=== PATIENT | male | born 2000 | race African-American/Black ===

== ENCOUNTER 2019-02-05 09:34 | Emergency (ER) | payer SELFPAY ==
[~2019-02-05] VITALS: Ht 167.6 cm; Wt 64.4 kg
[~2019-02-05 09:34] MED LIST: ADVAIR 250-501 EACH INH; ALBUTEROL SULF8.5 GM INH; ALBUTEROL2.5 MG/3 M INH; AMOXICILLIN500 MG ORAL; PREDNISONE20 MG ORAL; SINGULAIR10 MG ORAL; [UNRECOGNIZED DRUG - SUPPLY]
[2019-02-05] MEDS ORDERED: ACETAMINOPHEN325 M1 ORAL (09:58)
--- NOTE | 2019-02-05 10:00 | NUR ---
ED Nurse Note: Patient walked into ED c/o lower back pain that is non radiating. patient reports he worked out recently prior to pain. patient is alert awake x 4 ambulatory steady gait. patient reports increased back pain with movement.
[2019-02-05] MEDS ORDERED: ROBAXIN-750750 MG PO (10:25)
--- NOTE | 2019-02-05 10:27 | Emergency Room Report ---
History of Present Illness General Chief Complaint: Lower Back Pain or Injury Source: Patient Present Illness HPI Disclaimer: Please note that this report is being documented using [employer] technology. This can lead to erroneous entry secondary to incorrect interpretation by the dictating instrument. HPI: 18-year-old male history of asthma and autism presents for evaluation of lumbosacral back pain. Symptoms have been present for approximately 3 days. He first noticed them after exercising as a gradual bilateral ache. There is no radiation of the pain down the legs and he denies lower extremity weakness, changes in sensation, saddle anesthesia, urinary retention or fecal incontinence. He is able to ambulate without difficulty. He denies any fevers , is not taking any injectable medications and does not use IV drugs. He took 400 mg of ibuprofen one time without significant improvement. There is no obvious trauma to the back. PMH: Autism, asthma PSH: None Allergies: None Social Hx: Denies alcohol, tobacco, drug use Allergies: Coded Allergies: No Known Allergies (Unverified , 02/18/14) Nursing Documentation-PMH Past Medical History: No History, Except For Hx Cardiac Problems: No Hx Asthma: Yes Hx Gastrointestinal Problems: No Hx Neurological Problems: No Review of Systems All Other Systems: negative except mentioned in HPI Physical Exam Vital Signs Date Time Temp Pulse Resp B/P (MAP) Pulse Ox O2 Delivery O2 Flow Rate FiO2 02/05/19 09:50 98.4 78 20 117/81 (93) 98 Room Air General: Awake and alert, no acute distress HEENT: NC/AT. EOMI. Cardiovascular: RRR. S1 and S2 normal. No murmur appreciated Resp: Normal work of breathing. No cough, wheezing or crackles appreciated Skin: Intact. No abrasions, laceration or rash over the exposed skin MSK: Normal tone and bulk. Moving all extremities. No obvious deformity. Ambulating safely without difficulty. Neuro: Awake and alert. Mentating appropriately. Sensation is intact over the dermatomes of the lower extremity. There is no saddle anesthesia. Back/Spine: No midline tenderness or deformity in the cervical, thoracic or lumbosacral spine. There is bilateral paraspinal tenderness and tenderness over the iliac crest, piriformis and superior portion of the gluteals bilaterally. There is no paraspinal tenderness in the cervical or thoracic spine. Medical Decision Making Diagnostic Impression: Primary Impression: Muscle spasm of back Additional Impression: back pain ER Course Is a 18-year-old male presenting for evaluation of lower back pain over the past several days. He has no red flag syndrome cauda equina syndrome or any significant history, physical exam finding that would suggest epidural abscess. Patient is likely experiencing pain secondary to a muscle spasm or lumbosacral strain after working out several days ago. He has not yet tried full dose NSAIDs and can be discharged home with Robaxin and ibuprofen. Follow- up with PMD as needed. His mother is been present with him during my history and physical exam and she understands and agrees with this treatment plan. We discussed reasons to return to the emergency department. They will be discharged home. Last Vital Signs Date Time Temp Pulse Resp B/P (MAP) Pulse Ox O2 Delivery O2 Flow Rate FiO2 02/05/19 09:50 98.4 78 20 117/81 (93) 98 Room Air Disposition: HOME, SELF-CARE Condition: Stable Scripts Methocarbamol* (ROBAXIN-750*) 750 Mg Tablet 750 MG PO TID, #21 TAB 0 Refills Prov: Armando Bradshaw MD 02/05/19 Patient Instructions: Low Back Sprain With Rehab-Sports[facility] Additional Instructions: You are evaluated in the emergency department today for back pain. Likely, this is a musculoskeletal strain and spasm from working out. Continue to use 650 mg of Tylenol every 4-6 hours but you can also add 600 mg of Motrin every 6 hours for control of pain and inflammation. He will also be started on a muscle relaxant to use as needed. I encourage you to stay mobile to prevent stiffness and perform back exercises and mobility exercises as able but without causing significant pain or further harm. You can use warm soaks in a bath to help loosen the muscles and heating/sports balsms if you feel they help. If you experiencing any weakness in the legs, are unable to walk, have difficulty passing urine, lose control of your bowels or notice any numbness or tingling in the legs please return to the emergency department for reevaluation. Follow-up with your primary doctor in the next 1 to 2 weeks to discuss this emergency department visit and for reevaluation. Armando Bradshaw MD Feb 05, 2019 10:27
[2019-02-05 10:30] VITALS: BP 120/82
[2019-02-05 10:35] VITALS: BP 117/81
--- NOTE | 2019-02-05 10:35 | NUR ---
ER DISCHARGE NOTE: Patient is cleared to be discharged per ERMD DR Bradshaw, pt is aox4, on room air, with stable vital signs. pt was given dc and prescription instructions, pt was able to verbalize understanding, pt id band removed without complications. pt is able to ambulate with steady gait. pt took all belongings.
== END 2019-02-05 10:35 | disposition home or self-care (01) ==
LOC: EMR 10:08
DX: M62.830 Muscle spasm of back (principal); M54.5 Low back pain; F84.0 Autistic disorder
CPT/HCPCS: 99282